=== PATIENT | female | born 1975 | race Caucasian/White ===

== ENCOUNTER → 2021-05-08 | Outpatient (CLI) | payer BC, OTHER | END | disposition home or self-care (01) | LOC: LABWHC1 11:52 | PROVIDERS: ATTEND Emergency Medicine | DX: Z20.822 Contact with and (suspected) exposure to COVID-19 (principal) | CPT/HCPCS: 87635 ==

== ENCOUNTER 2021-07-16 16:16 | Emergency (ER) | payer BC ==
[2021-07-16] MEDS ORDERED: SODIUM CHLORIDE 0.9% 1,000 ML IV STA (16:28)
[2021-07-16 16:38] LABS: Glucose,Whole Blood 109 mg/dL (75-99)
[2021-07-16 16:42] LABS: Basophils # (A) 0.1 k/uL (0-0.2); Basophils % (A) 1 %; Eosinophils # (A) 0.3 k/uL (0-0.7); Eosinophils % (A) 3 %; HCT 45.1 % (34.0-46.0); HGB 14.7 gm/dL (11.4-16.0); Lymphocytes # (A) 2.4 k/uL (1.0-4.8); Lymphocytes % (A) 29 %; MCH 31.7 pg (25.0-35.0); MCHC 32.5 g/dL (31.0-37.0); MCV 97.6 fL (80.0-100.0); Mean Platelet Volume 7.7; Monocytes # (A) 0.3 k/uL (0-1.0); Monocytes % (A) 4 %; Neutrophils # (A) 5.1 k/uL (1.3-7.7); Neutrophils % (A) 61 %; Platelet Count 341 k/uL (150-450); RBC 4.63 m/uL (3.80-5.40); WBC 8.3 k/uL (3.8-10.6)
--- NOTE | 2021-07-16 16:47 | ED ---
General Adult HPI - General Chief complaint: Neuro Symptoms/Deficit Stated complaint: weakness L side Time Seen by Provider: 07/16/21 16:25 Source: patient, family, RN notes reviewed, old records reviewed Mode of arrival: ambulatory Limitations: no limitations - History of Present Illness Initial comments: 46-year-old female presenting with sudden onset left-sided facial numbness, left arm and left leg numbness. Patient states he's feeling numb and tingly as if they were asleep. She had previous history of TIA CVA. She is not on any anticoagulant or antiplatelet medication. She has a history of hypertension and she is a current smoker. This began approximately 4 PM. She presents for evaluation at 4:30 PM. She denies significant headache. Denies chest pain. - Related Data Home Medications Medication Instructions Recorded Confirmed Acetaminophen Tab [Tylenol Tab] 1,000 mg PO ONCE PRN 07/16/21 07/16/21 Levothyroxine Sodium [Synthroid] 100 mcg PO AC-BRKFST 07/16/21 07/16/21 Lisinopril-Hctz 10-12.5 mg 1 tab PO DAILY 07/16/21 07/16/21 [Zestoretic 10-12.5] Metoprolol Succinate (ER) [Toprol 50 mg PO DAILY 07/16/21 07/16/21 Xl] Allergies Allergy/AdvReac Type Severity Reaction Status Date / Time bee venom protein (honey bee) Allergy Face Verified 07/16/21 17:04 Swelling Review of Systems ROS Statement: Those systems with pertinent positive or pertinent negative responses have been documented in the HPI. ROS Other: All systems not noted in ROS Statement are negative. Past Medical History Past Medical History: CVA/TIA, Hypertension History of Any Multi-Drug Resistant Organisms: None Reported Past Surgical History: Hysterectomy, Orthopedic Surgery Past Psychological History: No Psychological Hx Reported Smoking Status: Current every day smoker Past Alcohol Use History: Occasional Past Drug Use History: None Reported General Exam Limitations: no limitations General appearance: alert, in no apparent distress Head exam: Present: atraumatic, normocephalic Eye exam: Present: normal appearance, PERRL ENT exam: Present: normal exam Neck exam: Present: normal inspection. Absent: tenderness, meningismus Respiratory exam: Present: normal lung sounds bilaterally. Absent: respiratory distress, wheezes Cardiovascular Exam: Present: regular rate, normal rhythm GI/Abdominal exam: Present: soft. Absent: distended, tenderness, guarding Extremities exam: Present: normal inspection, normal capillary refill. Absent: calf tenderness Neurological exam: Present: alert, oriented X3, motor sensory deficit (Left facial numbness, left arm numbness, left leg numbness. No facial droop. No weakness in the left leg. The left arm does not have a drift but there is some subtle tremor or wavering. NIH of 2.). Absent: CN II-XII intact Psychiatric exam: Present: normal affect, normal mood Skin exam: Present: warm, dry, intact. Absent: cyanosis, diaphoretic Course Vital Signs 07/16/21 07/16/21 07/16/21 16:20 16:30 16:45 Temperature 97.8 F 98.4 F 98.0 F Pulse Rate 57 L 62 61 Respiratory 18 18 18 Rate Blood Pressure 158/90 156/88 156/83 O2 Sat by Pulse 99 97 99 Oximetry - Reevaluation(s) Reevaluation #1: 07/16/21 17:22 Patient reevaluated, symptoms improved. Reevaluation #2: 07/16/21 1649 Case discussed with the stroke echocardiograph tech Dr. Nesbitt, medical management. EKG Findings - EKG Comments: EKG Findings:: EKG: Sinus rhythm, low voltage, rate 61, CA interval 182, QRS duration 96, QTC 395, no ST segment elevation. Medical Decision Making - Medical Decision Making 38-year-old female presenting with numbness to the left face, left arm and left leg. Patient well-appearing mildly hypertensive upon arrival. CT and CT angiography performed in the emergency department. CT is negative for intracranial hemorrhage or mass effect. CTA shows aberrant vasculature without acute stenosis, aneurysmal change or occlusion. Patient is improved while in the emergency department. I did plan to admit this patient for further stroke evaluation however she states that her grandfather is leaving town to leave the state if she does not want to miss an opportunity to see him. We did discuss the risks of leaving as well as strict return parameters. The patient and her are informed of these risks. They will return with any worsening or changing symptoms in the meantime she will take aspirin. She's given neurology follow-up as well as plan to follow up with the primary care physician. - Lab Data Result diagrams: 07/16/21 16:33 07/16/21 16:33 Lab Results 07/16/21 07/16/21 07/16/21 Range/Units 16:31 16:33 16:33 WBC 8.3 (3.8-10.6) k/uL RBC 4.63 (3.80-5.40) m/uL Hgb 14.7 (11.4-16.0) gm/dL Hct 45.1 (34.0-46.0) % MCV 97.6 (80.0-100.0) fL MCH 31.7 (25.0-35.0) pg MCHC 32.5 (31.0-37.0) g/dL RDW 13.0 (11.5-15.5) % Plt Count 341 (150-450) k/uL MPV 7.7 Neutrophils % 61 % Lymphocytes % 29 % Monocytes % 4 % Eosinophils % 3 % Basophils % 1 % Neutrophils # 5.1 (1.3-7.7) k/uL Lymphocytes # 2.4 (1.0-4.8) k/uL Monocytes # 0.3 (0-1.0) k/uL Eosinophils # 0.3 (0-0.7) k/uL Basophils # 0.1 (0-0.2) k/uL PT 9.5 (9.0-12.0) sec INR 0.9 (<1.2) APTT 27.4 (22.0-30.0) sec Sodium (137-145) mmol/L Potassium (3.5-5.1) mmol/L Chloride (98-107) mmol/L Carbon Dioxide (22-30) mmol/L Anion Gap mmol/L BUN (7-17) mg/dL Creatinine (0.52-1.04) mg/dL Est GFR (CKD-EPI)AfAm (>60 ml/min/1.73 sqM) Est GFR (CKD-EPI)NonAf (>60 ml/min/1.73 sqM) Glucose (74-99) mg/dL POC Glucose (mg/dL) 109 H (75-99) mg/dL POC Glu Kennel Aide ID Rashmi, Marli Calcium (8.4-10.2) mg/dL Total Bilirubin (0.2-1.3) mg/dL AST (14-36) U/L ALT (4-34) U/L Alkaline Phosphatase (38-126) U/L Troponin I (0.000-0.034) ng/mL Total Protein (6.3-8.2) g/dL Albumin (3.5-5.0) g/dL 07/16/21 07/16/21 Range/Units 16:33 16:33 WBC (3.8-10.6) k/uL RBC (3.80-5.40) m/uL Hgb (11.4-16.0) gm/dL Hct (34.0-46.0) % MCV (80.0-100.0) fL MCH (25.0-35.0) pg MCHC (31.0-37.0) g/dL RDW (11.5-15.5) % Plt Count (150-450) k/uL MPV Neutrophils % % Lymphocytes % % Monocytes % % Eosinophils % % Basophils % % Neutrophils # (1.3-7.7) k/uL Lymphocytes # (1.0-4.8) k/uL Monocytes # (0-1.0) k/uL Eosinophils # (0-0.7) k/uL Basophils # (0-0.2) k/uL PT (9.0-12.0) sec INR (<1.2) APTT (22.0-30.0) sec Sodium 138 (137-145) mmol/L Potassium 4.8 (3.5-5.1) mmol/L Chloride 104 (98-107) mmol/L Carbon Dioxide 25 (22-30) mmol/L Anion Gap 9 mmol/L BUN 20 H (7-17) mg/dL Creatinine 1.11 H (0.52-1.04) mg/dL Est GFR (CKD-EPI)AfAm 68 (>60 ml/min/1.73 sqM) Est GFR (CKD-EPI)NonAf 59 (>60 ml/min/1.73 sqM) Glucose 108 H (74-99) mg/dL POC Glucose (mg/dL) (75-99) mg/dL POC Glu Kennel Aide ID Calcium 9.1 (8.4-10.2) mg/dL Total Bilirubin 1.1 (0.2-1.3) mg/dL AST 47 H (14-36) U/L ALT 38 H (4-34) U/L Alkaline Phosphatase 97 (38-126) U/L Troponin I <0.012 (0.000-0.034) ng/mL Total Protein 8.3 H (6.3-8.2) g/dL Albumin 4.8 (3.5-5.0) g/dL Disposition Clinical Impression: Transient cerebral ischemia Disposition: HOME SELF-CARE Condition: Good Instructions (If sedation given, give patient instructions): Transient Ischemic Attack (ED) Additional Instructions: Please return with any worsening or changing symptoms immediately. Is patient prescribed a controlled substance at d/c from ED?: No Referrals: Nonstaff,Physician [Primary Care Provider] - 1-2 days Alesha Hubbard MD [Medical Doctor] - 1-2 days Ny Flores MD [REFERRING] - 1-2 days
--- NOTE | 2021-07-16 16:48 | CT ---
EXAMINATION TYPE: CT brain wo con for TPA DATE OF EXAM: 07/16/2021 COMPARISON: None HISTORY: 46-year-old female neurologic deficit, acute, stroke suspected, CVA, weakness. TECHNIQUE: Examination was done in axial plane without intravenous contrast. Coronal and sagittal r econstructions performed. CT DLP: 1125.2 mGycm Automated exposure control for dose reduction was used. FINDINGS: There is no evidence of acute intracranial hemorrhage, acute ischemic changes, mass, mass-effect, or extra-axial fluid collection. There is no effacement of cerebral sulci or basal subarachnoid cister ns. There is no hydrocephalus. There is no midline shift. Franks-white matter distinction is preserv ed. Mild lobulated mucosal thickening floor of the left maxillary sinus. Mastoid air cells well pneumatiz ed. The globes are intact. IMPRESSION: No acute intracranial abnormality seen.
[2021-07-16 16:50] LABS: INR 0.9 (<1.2); Partial Thromboplastin Time 27.4 sec (22.0-30.0); Prothrombin Time 9.5 sec (9.0-12.0)
[2021-07-16 16:52] LABS: Albumin 4.8 g/dL (3.5-5.0); Calcium 9.1 mg/dL (8.4-10.2); Total Bilirubin 1.1 mg/dL (0.2-1.3); Total Protein 8.3 g/dL (6.3-8.2)
[2021-07-16 16:55] LABS: Potassium 4.8 mmol/L (3.5-5.1)
--- NOTE | 2021-07-16 16:56 | CT ---
EXAMINATION TYPE: CT angio head neck DATE OF EXAM: 07/16/2021 COMPARISON: Brain same day HISTORY: 46-year-old female weakness, CVA TECHNIQUE: Contiguous axial scanning of the head and neck performed with IV Contrast, patient injecte d with 65cc mL of Isovue 370. Coronal/sagittal MIP reconstructions performed. 3-D reconstructions gen erated on a dedicated workstation. CT DLP: 575.4 mGycm Automated exposure control for dose reduction was used. FINDINGS: NECK: Mild scattered emphysematous change in the visualized upper lungs. There is variant direct takeoff of the left vertebral artery directly from the aortic arch. There is a dominant left vertebral artery. Both vertebral arteries are otherwise patent throughout the course. The right common and right internal carotid artery is patent by neck and criteria. The left common carotid artery is patent. Left internal carotid artery also widely patent by neck cri teria. HEAD: The V4 segment right vertebral artery becomes hypoplastic. The basilar artery is also somewhat mildly diminutive in caliber throughout its entire extent. Correlate for any chronic symptoms of vertebroba silar insufficiency. Posterior circulation otherwise appears patent. The bilateral internal carotid arteries and remainder of the anterior circulation also appears patent . No aneurysmal changes seen. IMPRESSION: 1. NECK: WIDELY PATENT VERTEBRAL AND CAROTID ARTERIES OF THE NECK. INCIDENTAL ABERRANT DIRECT TAKEOFF OF THE LEFT VERTEBRAL ARTERY DIRECTLY FROM THE AORTIC ARCH. DOMINANT LEFT VERTEBRAL ARTERY. 2. HEAD: HYPOPLASTIC V4 SEGMENT RIGHT VERTEBRAL ARTERY. THE BASILAR ARTERY ALSO SHOWS MILD UNIFORM DI MINUTIVE APPEARANCE LIKELY ON A CONGENITAL BASIS. CORRELATE FOR ANY CHRONIC SYMPTOMS OF VERTEBROBASIL AR INSUFFICIENCY. OTHERWISE, NO LARGE VESSEL INTRACRANIAL ARTERIAL OCCLUSION, SIGNIFICANT STENOSIS, O R ANEURYSMAL CHANGE IS SEEN.
[2021-07-16] MEDS ORDERED: ASPIRIN 325 MG TAB PO STA (17:10)
[2021-07-16 17:30] VITALS: PULSE 53; RESP 16; TEMP 98.1
[2021-07-16 18:20] VITALS: BP 107/64
== END 2021-07-16 18:25 | disposition home or self-care (01) ==
LOC: EC 16:16
DX: G45.9 Transient cerebral ischemic attack, unspecified (principal); I10 Essential (primary) hypertension; F17.200 Nicotine dependence, unspecified, uncomplicated; Z79.899 Other long term (current) drug therapy
CPT/HCPCS: 36415; 93005; 80053; 84484; 85025; 85610; 85730; 70496; 70450; 70498; 99284; Q9967

== ENCOUNTER → 2021-09-14 | Outpatient (CLI) | payer BC ==
--- NOTE | 2021-09-15 06:33 | US ---
EXAMINATION TYPE: US thyroid st tissue head/neck DATE OF EXAM: 09/14/2021 COMPARISON: CTA neck July 16, 2021 CLINICAL HISTORY: C73 MALIGNANT NEOPLASM OF THYROID GLAND. MEASUREMENTS: GLAND SIZE: Bilateral thyroidectomy. No nodules evident, minimal to no residual tissue. Bilateral neck scanned, no evidence of lymphadenopathy. No suspicious residual tissue at level of thyroid bed. No concerning adenopathy seen on images saved. IMPRESSION: As above.
== END | disposition home or self-care (01) ==
LOC: RADUSWWP 14:24
PROVIDERS: ATTEND Family Medicine
DX: C73 Malignant neoplasm of thyroid gland (principal); E89.0 Postprocedural hypothyroidism
CPT/HCPCS: 76536

== ENCOUNTER 2022-10-27 13:49 | Emergency (ER) | payer BC ==
[2022-10-27 15:25] LABS: Basophils % (A) 1 %; Eosinophils # (A) 0.3 k/uL (0-0.7); Eosinophils % (A) 4 %; HGB 15.4 gm/dL (11.4-16.0); Lymphocytes # (A) 2.2 k/uL (1.0-4.8); Lymphocytes % (A) 31 %; MCH 31.7 pg (25.0-35.0); MCHC 32.8 g/dL (31.0-37.0); MCV 96.7 fL (80.0-100.0); Mean Platelet Volume 8.1; Monocytes # (A) 0.4 k/uL (0-1.0); Monocytes % (A) 6 %; Neutrophils % (A) 57 %; Platelet Count 287 k/uL (150-450); RBC 4.86 m/uL (3.80-5.40); RDW 13.4 % (11.5-15.5); WBC 6.9 k/uL (3.8-10.6)
--- NOTE | 2022-10-27 15:36 | ED ---
Recheck HPI - General Chief Complaint: Recheck/Abnormal Lab/Rx Stated Complaint: Abnormal Labs, Sent by PCP Time Seen by Provider: 10/27/22 15:06 Source: patient Mode of arrival: ambulatory Limitations: no limitations - History of Present Illness Initial Comments: Patient is a 47-year-old woman who presents to have reevaluation related to elevated liver enzymes. The patient received a call from her physician stating that her AST and ALT were markedly elevated. The patient had gone to see her physician last week and had routine lab testing drawn, as her thyroid levels needed to be checked. She states she has been out of her thyroid medication for weeks. The patient states she has been having some intermittent upper abdominal pains that she attributed to indigestion. She states the pain would come and go, sometimes in relation to food. No vomiting. She has not noted any jaundice or change in her stool or urine. MD Complaint: abnormal lab -: days(s) Returns Today for: Called Because of Abnormal Lab/Test Symptoms Since Prior Visit: no new symptoms Context: called for abnormal lab result Associated Symptoms: none - Related Data Home Medications Medication Instructions Recorded Confirmed Metoprolol Succinate (ER) [Toprol 50 mg PO HS 07/16/21 10/27/22 Xl] Ashwagandha Root Extract 500 mg PO BID 10/27/22 10/27/22 [Ashwagandha] Cinnamon 2000mg 1 cap PO W/LUNCH 10/27/22 10/27/22 DULoxetine HCL [Cymbalta] 60 mg PO HS 10/27/22 10/27/22 Levothyroxine Sodium [Synthroid] 125 mcg PO DAILY 10/27/22 10/27/22 Lisinopril-Hctz 20-12.5 mg 1 tab PO HS 10/27/22 10/27/22 [Zestoretic 20-12.5] Milk Thistle 1000mg 1 cap PO W/LUNCH 10/27/22 10/27/22 Turmeric Root Extract [Turmeric] 500 mg PO W/LUNCH 10/27/22 10/27/22 Vitamin B Complex Oral Drops 5 ml PO W/LUNCH 10/27/22 10/27/22 Previous Rx's Medication Instructions Recorded Famotidine [Pepcid] 20 mg PO BID #14 tablet 10/27/22 Lidocaine Viscous [Xylocaine 5 ml PO Q3HR PRN #100 ml 10/27/22 Viscous 2%] Allergies Allergy/AdvReac Type Severity Reaction Status Date / Time bee venom protein (honey bee) Allergy Face Verified 10/27/22 18:11 Swelling Review of Systems ROS Statement: Those systems with pertinent positive or pertinent negative responses have been documented in the HPI. ROS Other: All systems not noted in ROS Statement are negative. Constitutional: Denies: fever, chills Respiratory: Denies: cough, dyspnea Cardiovascular: Denies: chest pain, palpitations, edema Endocrine: Reports: fatigue Gastrointestinal: Reports: as per HPI, abdominal pain. Denies: nausea, vomiting, diarrhea, constipation, melena, hematochezia Genitourinary: Denies: dysuria, hematuria Musculoskeletal: Denies: back pain Skin: Denies: rash Neurological: Denies: headache, weakness, numbness Past Medical History Past Medical History: CVA/TIA, Hypertension History of Any Multi-Drug Resistant Organisms: None Reported Past Surgical History: Hysterectomy, Orthopedic Surgery Past Psychological History: No Psychological Hx Reported Smoking Status: Current every day smoker Past Alcohol Use History: Occasional Past Drug Use History: None Reported General Exam Limitations: no limitations General appearance: alert, in no apparent distress Head exam: Present: atraumatic, normocephalic Eye exam: Present: normal appearance. Absent: scleral icterus, conjunctival injection ENT exam: Present: normal oropharynx Neck exam: Present: normal inspection Respiratory exam: Present: normal lung sounds bilaterally. Absent: respiratory distress, wheezes, rales, rhonchi, stridor Cardiovascular Exam: Present: regular rate, normal rhythm, normal heart sounds. Absent: systolic murmur, diastolic murmur, rubs, gallop GI/Abdominal exam: Present: soft, tenderness (There is mild epigastric and right upper quadrant tenderness without rebound or guarding). Absent: distended, guarding, rebound, rigid, mass Extremities exam: Present: normal inspection, normal capillary refill. Absent: pedal edema, calf tenderness Back exam: Present: normal inspection. Absent: CVA tenderness (R), CVA tenderness (L) Neurological exam: Present: alert Skin exam: Present: warm, dry, intact, normal color. Absent: rash Course Vital Signs 10/27/22 10/27/22 10/27/22 14:35 15:10 15:28 Temperature 98.4 F 98.8 F Pulse Rate 76 66 Respiratory 20 18 Rate Blood Pressure 113/75 117/83 O2 Sat by Pulse 98 96 98 Oximetry 10/27/22 10/27/22 10/27/22 16:00 17:00 18:00 Temperature Pulse Rate 72 70 Respiratory 18 18 Rate Blood Pressure 110/76 121/91 118/84 O2 Sat by Pulse 96 98 98 Oximetry Medical Decision Making - Medical Decision Making This patient is 47-year-old woman who is here to have evaluation after having had marked elevation of transaminases. Today the levels have shown improvement. The patient also having history and physical exam results consistent with esophagitis. She did have improvement with medication here. I discussed results with patient and at this point she would like to go home and follow up as outpatient. Discussed that she requires further testing to ensure that the transaminase levels returned to baseline. She'll take medication here and follow with gastroenterology understands that upper endoscopy may be required if symptoms do not resolve. Was pt. sent in by a medical professional or institution (, PA, RECEPTION CLERK, urgent care, hospital, or prison...) When possible be specific @ -Patient sent to have further evaluation by her primary clinic Did you speak to anyone other than the patient for history (EMS, parent, family, police, friend...)? What history was obtained from this source @ -[No] Did you review nursing and triage notes (agree or disagree)? Why? @ -[I reviewed and agree with nursing and triage notes] Were old charts reviewed (outside hosp., previous admission, EMS record, old EKG, old radiological studies, urgent care reports/EKG's, prison records)? Report findings @ -[No old charts were reviewed] Differential Diagnosis (chest pain, altered mental status, abdominal pain women, abdominal pain men, vaginal bleeding, weakness, fever, dyspnea, syncope, headache, dizziness, GI bleed, back pain, seizure, CVA, palpatations, mental health, musculoskeletal)? @ -[Differential Abdominal Pain Women: Appendicitis, Cholecystitis, diverticulosis, ischemic bowel, pancreatitis, hepatitis, UTI, gastroenteritis, AAA, incarcerated hernia, bowel obstruction, constipation, inflammatory bowel, hepatitis, peptic ulcer disease, splenic infarction, perforated viscus, vulvitis, ovarian torsion, PID, kidney stone, placenta abruption, this is not meant to be an all-inclusive list EKG interpreted by me (3pts min.). @ -[As above] X-rays interpreted by me (1pt min.). @ -[None done] CT interpreted by me (1pt min.). @ -[None done] U/S interpreted by me (1pt. min.). @ -[None done] What testing was considered but not performed or refused? (CT, X-rays, U/S, labs)? Why? @ -[None] What meds were considered but not given or refused? Why? @ -[None] Did you discuss the management of the patient with other professionals (professionals i.e. DrSheila, PA, RECEPTION CLERK, lab, RT, psych nurse, social science teacher, rubber cutting machine tender, teacher, light armored reconnaissance officer, casework specialist)? Give summary @ -[No] Was smoking cessation discussed for >3mins.? @ -[No] Was critical care preformed (if so, how long)? @ -[No] Were there social determinants of health that impacted care today? How? (Homelessness, low income, unemployed, alcoholism, drug addiction, transportation, low edu. Level, literacy, decrease access to med. care, residential, rehab)? @ -[No] Was there de-escalation of care discussed even if they declined (Discuss DNR or withdrawal of care, Hospice)? DNR status @ -[No] What co-morbidities impacted this encounter? (DM, HTN, Smoking, COPD, CAD, Cancer, CVA, ARF, Chemo, Hep., AIDS, mental health diagnosis, sleep apnea, morbid obesity)? @ -[None] Was patient admitted / discharged? Hospital course, mention meds given and route, prescriptions, significant lab abnormalities, going to OR and other pertinent info. @ -[Discharged, see above Undiagnosed new problem with uncertain prognosis? @ -[No] Drug Therapy requiring intensive monitoring for toxicity (Heparin, Nitro, Insulin, Cardizem)? @ -[No] Were any procedures done? @ -[No] Diagnosis/symptom? @ -[Acute esophagitis Acute elevated transaminases levels Acute, or Chronic, or Acute on Chronic? @ -[Acute Uncomplicated (without systemic symptoms) or Complicated (systemic symptoms)? @ -[Uncomplicated Side effects of treatment? @ -[No] Exacerbation, Progression, or Severe Exacerbation? @ -[No] Poses a threat to life or bodily function? How? (Chest pain, USA, MA, pneumonia, PE, COPD, DKA, ARF, appy, cholecystitis, CVA, Diverticulitis, Homicidal, Suicidal, threat to staff... and all critical care pts) @ -[No] - Lab Data Result diagrams: 10/27/22 15:13 10/27/22 15:13 Lab Results 10/27/22 10/27/22 10/27/22 Range/Units 15:13 15:13 15:13 WBC 6.9 (3.8-10.6) k/uL RBC 4.86 (3.80-5.40) m/uL Hgb 15.4 (11.4-16.0) gm/dL Hct 47.0 H (34.0-46.0) % MCV 96.7 (80.0-100.0) fL MCH 31.7 (25.0-35.0) pg MCHC 32.8 (31.0-37.0) g/dL RDW 13.4 (11.5-15.5) % Plt Count 287 (150-450) k/uL MPV 8.1 Neutrophils % 57 % Lymphocytes % 31 % Monocytes % 6 % Eosinophils % 4 % Basophils % 1 % Neutrophils # 4.0 (1.3-7.7) k/uL Lymphocytes # 2.2 (1.0-4.8) k/uL Monocytes # 0.4 (0-1.0) k/uL Eosinophils # 0.3 (0-0.7) k/uL Basophils # 0.0 (0-0.2) k/uL Sodium 141 (137-145) mmol/L Potassium 4.1 (3.5-5.1) mmol/L Chloride 102 (98-107) mmol/L Carbon Dioxide 26 (22-30) mmol/L Anion Gap 13 mmol/L BUN 17 (7-17) mg/dL Creatinine 1.28 H (0.52-1.04) mg/dL Est GFR (CKD-EPI)AfAm 57 (>60 ml/min/1.73 sqM) Est GFR (CKD-EPI)NonAf 49 (>60 ml/min/1.73 sqM) Glucose 93 (74-99) mg/dL Calcium 9.8 (8.4-10.2) mg/dL Total Bilirubin 1.0 (0.2-1.3) mg/dL AST 224 H (14-36) U/L ALT 869 H (4-34) U/L Alkaline Phosphatase 282 H (38-126) U/L Troponin I (0.000-0.034) ng/mL Total Protein 8.1 (6.3-8.2) g/dL Albumin 4.7 (3.5-5.0) g/dL Amylase 65 (30-110) U/L Lipase 99 (23-300) U/L TSH >100.000 H (0.465-4.680) mIU/L Free T4 0.36 L (0.80-1.80) ng/dL Free T3 pg/mL 1.3 L (2.30-4.20) pg/ml Total T3 (60.0-180.0) ng/dL Urine Color Yellow Urine Appearance Cloudy H (Clear) Urine pH 5.5 (5.0-8.0) Ur Specific [place] 1.026 (1.001-1.035) Urine Protein Trace H (Negative) Urine Glucose (UA) Negative (Negative) Urine Ketones Negative (Negative) Urine Blood Trace H (Negative) Urine Nitrite Negative (Negative) Urine Bilirubin Negative (Negative) Urine Urobilinogen 2.0 (<2.0) mg/dL Ur Leukocyte Esterase Negative (Negative) Urine RBC 3 (0-5) /hpf Urine WBC 1 (0-5) /hpf Ur Squamous Epith Cells 11 H (0-4) /hpf Urine Bacteria Occasional H (None) /hpf Hyaline Casts 3 H (0-2) /lpf Urine Mucus Few H (None) /hpf Hepatitis A IgM Ab Hep Bs Antigen Hep B Core IgM Ab Hep C IgG Ab 10/27/22 10/27/22 10/27/22 Range/Units 15:13 15:13 15:28 WBC (3.8-10.6) k/uL RBC (3.80-5.40) m/uL Hgb (11.4-16.0) gm/dL Hct (34.0-46.0) % MCV (80.0-100.0) fL MCH (25.0-35.0) pg MCHC (31.0-37.0) g/dL RDW (11.5-15.5) % Plt Count (150-450) k/uL MPV Neutrophils % % Lymphocytes % % Monocytes % % Eosinophils % % Basophils % % Neutrophils # (1.3-7.7) k/uL Lymphocytes # (1.0-4.8) k/uL Monocytes # (0-1.0) k/uL Eosinophils # (0-0.7) k/uL Basophils # (0-0.2) k/uL Sodium (137-145) mmol/L Potassium (3.5-5.1) mmol/L Chloride (98-107) mmol/L Carbon Dioxide (22-30) mmol/L Anion Gap mmol/L BUN (7-17) mg/dL Creatinine (0.52-1.04) mg/dL Est GFR (CKD-EPI)AfAm (>60 ml/min/1.73 sqM) Est GFR (CKD-EPI)NonAf (>60 ml/min/1.73 sqM) Glucose (74-99) mg/dL Calcium (8.4-10.2) mg/dL Total Bilirubin (0.2-1.3) mg/dL AST (14-36) U/L ALT (4-34) U/L Alkaline Phosphatase (38-126) U/L Troponin I <0.012 (0.000-0.034) ng/mL Total Protein (6.3-8.2) g/dL Albumin (3.5-5.0) g/dL Amylase (30-110) U/L Lipase (23-300) U/L TSH (0.465-4.680) mIU/L Free T4 (0.80-1.80) ng/dL Free T3 pg/mL (2.30-4.20) pg/ml Total T3 35.9 L (60.0-180.0) ng/dL Urine Color Urine Appearance (Clear) Urine pH (5.0-8.0) Ur Specific [place] (1.001-1.035) Urine Protein (Negative) Urine Glucose (UA) (Negative) Urine Ketones (Negative) Urine Blood (Negative) Urine Nitrite (Negative) Urine Bilirubin (Negative) Urine Urobilinogen (<2.0) mg/dL Ur Leukocyte Esterase (Negative) Urine RBC (0-5) /hpf Urine WBC (0-5) /hpf Ur Squamous Epith Cells (0-4) /hpf Urine Bacteria (None) /hpf Hyaline Casts (0-2) /lpf Urine Mucus (None) /hpf Hepatitis A IgM Ab Nonreactive Hep Bs Antigen Nonreactive Hep B Core IgM Ab Nonreactive Hep C IgG Ab Nonreactive Disposition Clinical Impression: Elevated transaminase level, Esophagitis Disposition: HOME SELF-CARE Condition: Good Instructions (If sedation given, give patient instructions): Esophagitis (ED) Additional Instructions: Your transaminase levels remain elevated but have decreased from what was measured last week. Follow-up with the cookie mixer helper to have further evaluation and treatment. Return if you are feeling worse in anyway. It is recommended to stop using herbal supplements including green tea extract, black cohosh, and herbal weight-loss products Prescriptions: Famotidine [Pepcid] 20 mg PO BID #14 tablet Lidocaine Viscous [Xylocaine Viscous 2%] 5 ml PO Q3HR PRN #100 ml PRN Reason: Sore Throat Is patient prescribed a controlled substance at d/c from ED?: No Referrals: Jerome Vines DO [Primary Care Provider] - 1-2 days Kelli Rogers MD [STAFF PHYSICIAN] - 1-2 days
[2022-10-27 15:43] LABS: Appearance,Urine Cloudy (Clear); Bacteria,Urine Occasional /hpf; Bilirubin,Urine Negative (Negative); Blood,Urine Trace (Negative); Color,Urine Yellow; Glucose,Urine (UA) Negative (Negative); Hyaline Casts,Urine 3 /lpf (0-2); Ketones,Urine Negative (Negative); Leukocyte Esterase,Urine Negative (Negative); Mucus,Urine Few /hpf; Nitrite,Urine Negative (Negative); PH, Urine 5.5 (5.0-8.0); Protein,Urine Trace (Negative); RBC,Urine 3 /hpf (0-5); Specific Gravity,Urine 1.026 (1.001-1.035); Squamous Epithelial Cell,Urine 11 /hpf (0-4); WBC,Urine 1 /hpf (0-5)
[2022-10-27 15:47] LABS: AST 224 U/L (14-36); African American GFR (CKD) 57 (>60 ml/min/1.73 sqM); Albumin 4.7 g/dL (3.5-5.0); Alkaline Phosphatase 282 U/L (38-126); Amylase 65 U/L (30-110); Anion Gap 13 mmol/L; Blood Urea Nitrogen 17 mg/dL (7-17); Calcium 9.8 mg/dL (8.4-10.2); Carbon Dioxide 26 mmol/L (22-30); Chloride 102 mmol/L (98-107); Glucose 93 mg/dL (74-99); Lipase 99 U/L (23-300); Non-African American GFR(CKD) 49 (>60 ml/min/1.73 sqM); Potassium 4.1 mmol/L (3.5-5.1); Sodium 141 mmol/L (137-145); Total Protein 8.1 g/dL (6.3-8.2)
[2022-10-27 15:54] LABS: ALT 869 U/L (4-34)
--- NOTE | 2022-10-27 16:26 | US ---
EXAMINATION TYPE: US abdomen limited DATE OF EXAM: 10/27/2022 COMPARISON: NONE CLINICAL INDICATION: Female, 47 years old with history of attention RUQ; Abnormal LFT's, pain TECHNIQUE: Multiple sonographic images of the right upper quadrant are obtained. FINDINGS: EXAM MEASUREMENTS: Liver Length: 18.3 cm Gallbladder Wall: 0.3 cm CBD: 0.5 cm Right Kidney: 10.5 x 3.9 x 4.1 cm Pancreas: 2mm pancreatic duct visualized is within normal limits, tail obscured by overlying bowel g as Liver: Mildly enlarged, slightly hypoechoic Gallbladder: Multiple, small, mobile gallstones. No abnormal distention, wall thickening, or surroun ding fluid. Evidence for sonographic Archibald's sign: Yes CBD: wnl Right Kidney: wnl IMPRESSION: 1. Small mobile gallstones. No ancillary imaging findings of acute cholecystitis. However, sonographi c Archibald's sign is reportedly positive. This could reflect referred pain. If further imaging evaluati on of the gallbladder is desired, HIDA scan can be performed. 2. Mild hepatomegaly. Slightly hypoechoic liver parenchyma. Findings nonspecific; consider the possib ility of hepatitis/nonspecific hepatocellular disease. 3. No biliary ductal dilatation.
[2022-10-27 18:30] VITALS: RESP 18; TEMP 98.8
[2022-10-27 18:49] VITALS: BP 118/84; PULSE 70
[2022-10-27] MEDS ORDERED: MAG HYDROX/AL HYDROX/SIMETH 30 ML, HYOSCYAMINE ELIXIR 10 ML, LIDOCAINE 2% GLYDO JELLY 1... PO STA ×3 (19:34)
[2022-10-27] MEDS ORDERED: FAMOTIDINE 20 MG/2 ML VIAL IV STA (19:35)
[2022-10-28 01:05] LABS: Hepatitis A Antibody IgM Nonreactive; Hepatitis B Core IgM Nonreactive; Hepatitis B Surface Antigen Nonreactive; Hepatitis C IgG Antibody Nonreactive
[2022-10-28 02:01] LABS: T4, Free (Free Thyroxine) 0.36 ng/dL (0.80-1.80)
== END 2022-10-27 20:42 | disposition home or self-care (01) ==
LOC: EC 13:49
DX: K20.90 Esophagitis, unspecified without bleeding (principal); K80.20 Calculus of gallbladder without cholecystitis without obstruction; I10 Essential (primary) hypertension; F17.200 Nicotine dependence, unspecified, uncomplicated; Z79.899 Other long term (current) drug therapy; Z91.030 Bee allergy status
CPT/HCPCS: 36415; 76705; 80053; 80074; 81001; 82150; 83690; 84439; 84443; 84480; 84481; 84484; 85025; 96374; 99283

== ENCOUNTER → 2023-05-21 | Outpatient (CLI) | payer BC ==
--- NOTE | 2023-05-29 10:07 | MM ---
Reason for Exam: Screening (asymptomatic). Last mammogram was performed 3 year(s) and 11 month(s) ago. Patient History: Menarche at age 11. First Full-Term at age 21. Hysterectomy at age 29. Postmenopausal. Maternal grandmother had breast cancer under age 50. Paternal aunt had breast cancer. Risk Values: Nolvia 5 year model risk: 0.9%. NCI Lifetime model risk: 8.0%. Prior Study Comparison: 06/13/2019 Bilateral Screening Mammogram, [facility]. 06/27/2019 Bilateral Diagnostic Mammogram, [facility]. Tissue Density: There are scattered fibroglandular densities. Findings: Analyzed By CAD. There is no suspicious group of microcalcifications or new suspicious mass. Overall Assessment: Negative, BI-RAD 1 Management: Screening Mammogram of both breasts in [address] [facility] will attempt to contact patient to return for supplemental views and ultrasound if indicated. Patient should continue monthly self-breast exams. A clinical breast exam by your physician is recommended on an annual basis. This exam should not preclude additional follow-up of suspicious palpable abnormalities. Note on Nolvia scores and lifetime risk: 1. A Nolvia score greater than 3% is considered moderate risk. If this is the case, consider specialist referral to assess eligibility for a risk reducing agent. 2. If overall lifetime risk for the development of breast cancer is 20% or higher, the patient may qualify for future screening with alternating mammogram and breast MRI. Electronically signed and approved by: Mello Krishna DO
== END | disposition home or self-care (01) ==
LOC: RADMAMWWP 15:46
PROVIDERS: ATTEND Family Medicine
DX: Z12.31 Encounter for screening mammogram for malignant neoplasm of breast (principal); Z80.3 Family history of malignant neoplasm of breast; Z78.0 Asymptomatic menopausal state
CPT/HCPCS: 77063; 77067

== ENCOUNTER → 2024-01-15 | Outpatient (CLI) | payer BC | END | disposition home or self-care (01) | LOC: LABWHC1 09:51 | PROVIDERS: ATTEND Internal Medicine Endocrinology, Diabetes & Metabolism | DX: C73 Malignant neoplasm of thyroid gland (principal) | CPT/HCPCS: 36415; 84432; 84443; 86800 ==